=== PATIENT | female | born 1950 | race African-American/Black ===

== ENCOUNTER 2016-05-11 20:43 | Emergency (ER) | payer MEDICARE, MEDICAID ==
[~2016-05-11] VITALS: Ht 162.6 cm; Wt 114.0 kg
[~2016-05-11 20:43] MED LIST: ATEN-102 PO; BACL10TA PO; GABA100C4 PO; HYDR-2768 PO; NAPR500 PO; TRIX0.07 TOP; VIST25CA PO
[2016-05-11 20:46] VITALS: BP 225/124; PULSE 74; RESP 18; TEMP 98.5; O2SAT 98
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
[2016-05-11 21:24] VITALS: BP 242/107
[2016-05-11] MEDS ORDERED: GABA300C5 PO (21:28)
[2016-05-11] MEDS ORDERED: ATEN25TA PO (21:28)
[2016-05-11] MEDS ORDERED: ATEN50TA PO (21:28)
[2016-05-11] MEDS ORDERED: HYDR50CA PO (21:28)
[2016-05-11] MEDS ORDERED: NAPR500T PO (21:28)
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
[2016-05-11] MEDS ORDERED: SODIUM CHLORIDE 0.9% FLUSH 5 ML FLUSH IVF PRN (22:00)
[2016-05-11] MEDS ORDERED: cloNIDine HCL 0.2 MG TAB PO ONE (22:15)
[2016-05-11 22:20] LABS: APTT (PATIENT) 21.8 SEC (24.3-30.1); INTERNATIONAL NORMALIZED RATIO 0.9 RATIO
[2016-05-11 22:40] LABS: AUTOMATED NEUTROPHIL # 2.6 TH/MM3 (1.8-7.7); BASOPHIL # 0.1 TH/MM3 (0-0.2); BASOPHIL % 1.3 % (0.0-2.0); EOSINOPHIL # 0.2 TH/MM3 (0-0.4); HEMATOCRIT 33.9 % (35.0-46.0); HEMO FLAGS DIFF FINAL; LYMPH % 42.2 % (9.0-44.0); LYMPHOCYTE # 2.5 TH/MM3 (1.0-4.8); MEAN CELL VOLUME 83.8 FL (80.0-100.0); MEAN CORPUSCULAR HEMOGLOBIN 27.2 PG (27.0-34.0); MEAN CORPUSCULAR HGB CONC 32.4 % (32.0-36.0); MONO % 8.2 % (0.0-8.0); NEUT % 44.3 % (16.0-70.0); PLATELET COUNT 283 TH/MM3 (150-450); RED BLOOD COUNT 4.05 MIL/MM3 (4.00-5.30); RED CELL DISTRIBUTION WIDTH 16.4 % (11.6-17.2); WHITE BLOOD COUNT 5.9 TH/MM3 (4.0-11.0)
[2016-05-11 22:46] LABS: ALKALINE PHOSPHATASE 93 U/L (45-117); ALT (GPT) 18 U/L (10-53); ANION GAP 9 MEQ/L (5-15); AST (GOT) 22 U/L (15-37); BICARBONATE 28.4 MEQ/L (21.0-32.0); BLOOD UREA NITROGEN 18 MG/DL (7-18); CHLORIDE 106 MEQ/L (98-107); CREATINE KINASE 119 U/L (26-192); GLOMERULAR FILTRATION RATE 52 ML/MIN (>89); MAGNESIUM 2.2 MG/DL (1.5-2.5); POTASSIUM 3.6 MEQ/L (3.5-5.1); SODIUM (NA) 143 MEQ/L (136-145); TOTAL BILIRUBIN ADULT 0.3 MG/DL (0.2-1.0)
[2016-05-11 22:58] LABS: CKMB 0.7 NG/ML (0.5-3.6)
[2016-05-11 23:08] VITALS: BP 162/104; PULSE 60; RESP 18; O2SAT 100; O2SAT 97
[2016-05-11 23:14] VITALS: BP 172/90; PULSE 98; RESP 59; O2SAT 97
[2016-05-12 01:02] VITALS: BP 154/73; PULSE 56; RESP 18; TEMP 98.1; O2SAT 97
--- NOTE | 2016-05-12 09:18 | EKG ---
Date Performed: 05/11/2016 Time Performed: 21:27:44 PTAGE: 65 years EKG: Sinus rhythm NORMAL ECG PREVIOUS TRACING : 09/16/2014 15.24 No significant change from previous tracing noted. DOCTOR: Rupert Mc Interpretating Date/Time 05/12/2016 09:16:42
[2016-08-06] MEDS ORDERED: [UNRECOGNIZED DRUG - CODE] (14:28)
[2016-08-06] MEDS ORDERED: GLUC500C5 PO (14:28)
[2016-08-20] MEDS ORDERED: BUTO1CRE PV (15:35)
[2016-08-23] MEDS ORDERED: FLUC150T PO (11:47)
== END 2016-05-12 01:28 | disposition home or self-care (01) ==
LOC: NEPC 20:43
DX: I15.9 Secondary hypertension, unspecified (principal); R51 Headache; E78.00 Pure hypercholesterolemia, unspecified; Z79.899 Other long term (current) drug therapy; Z86.2 Personal history of diseases of the blood and blood-forming organs and certain disorders involving the immune mechanism; Z87.39 Personal history of other diseases of the musculoskeletal system and connective tissue; Z86.59 Personal history of other mental and behavioral disorders; Z86.79 Personal history of other diseases of the circulatory system; Z87.09 Personal history of other diseases of the respiratory system
CPT/HCPCS: 80053; 82550; 82552; 83735; 84484; 85025; 85610; 85730; 93005

== ENCOUNTER 2017-01-21 15:17 | Emergency (ER) | payer MEDICARE, OTHER ==
[~2017-01-21 15:17] MED LIST changes: -ATEN-102 PO; +ATEN25TA PO; +ATEN50TA PO; -BACL10TA PO; +BUTO1CRE PV; +FLUC150T PO; -GABA100C4 PO; +GABA300C5 PO; +GLUC500C5 PO; -HYDR-2768 PO; +HYDR50CA PO; -NAPR500 PO; -TRIX0.07 TOP; -VIST25CA PO; +[UNRECOGNIZED DRUG - CODE]
[2017-01-21 15:19] VITALS: BP 131/75; PULSE 76; RESP 22; TEMP 98.8; O2SAT 98
--- NOTE | 2017-01-21 16:45 | RADRPT ---
EXAM DATE/TIME: 01/21/2017 16:06 [facility] COMPARISON: HIP LEFT (AP&LAT 2/3VWS) W AP PELVIS, October 08, 2015, 19:02. INDICATIONS : Left hip pain post fall over one month ago. MEDICAL HISTORY : None. SURGICAL HISTORY : None. ENCOUNTER: Initial ACUITY: 1 month PAIN SCORE: 9/10 LOCATION: Left hip. FINDINGS: Examination of the left hip was performed with AP Pelvis. The primary and secondary trabecular patte rn of the femoral neck is intact. The hip joint is of normal width without significant sclerosis or bony hypertrophy. The acetabulum is grossly intact. CONCLUSION: 1. No fracture or dislocation. No significant bony remodeling or periosteal reaction. Jr Dumont MD on January 21, 2017 at 16:42 Board Certified Radiologist. This report was verified electronically.
[2017-01-21] MEDS ORDERED: TRAM50TA PO (17:29)
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
== END 2017-01-21 18:05 | disposition home or self-care (01) ==
LOC: NEPD 15:17
DX: S76.012A Strain of muscle, fascia and tendon of left hip, initial encounter (principal); D64.9 Anemia, unspecified; M19.90 Unspecified osteoarthritis, unspecified site; F41.9 Anxiety disorder, unspecified; I10 Essential (primary) hypertension; E78.00 Pure hypercholesterolemia, unspecified; D57.3 Sickle-cell trait; W01.0XXA Fall on same level from slipping, tripping and stumbling without subsequent striking against object, initial encounter; X50.1XXA Overexertion from prolonged static or awkward postures, initial encounter
CPT/HCPCS: 73502; 99283